=== PATIENT | female | born 1980 | race Caucasian/White ===

== ENCOUNTER 2019-01-20 13:44 | Emergency (ER) | payer MEDICAID, OTHER ==
[~2019-01-20] VITALS: Ht 165.1 cm; Wt 98.3 kg
[2019-01-20 13:48] VITALS: Ht 165.1 cm; Wt 98.3 kg
[2019-01-20] MEDS ORDERED: SOD CHLORIDE 0.9% 1,000 ML IV STA (14:14)
[2019-01-20] MEDS ORDERED: MTF1000T PO (15:17)
--- NOTE | 2019-01-20 15:19 | ERD ---
ER Documentation Chief Complaint Chief Complaint pt sent from PCP for FSBS 335, dx with DM II HPI This is a 30-year-old female who was diagnosed with diabetes a month ago she is taking metformin 500 mg twice daily. She says she is taking her medication however she is not following the correct diet at all. She says she felt a bit dizzy today and switch her primary care doctor and they gave her some insulin and sent her here for evaluation. No polys ROS All systems reviewed and are negative except as per history of present illness. Medications Home Meds Active Scripts Metformin* (Glucophage*) 1,000 Mg Tablet, 1000 MG PO BID, #60 TAB Prov:SHARON PALMEREdouard DO 01/20/19 Allergies Allergies: Coded Allergies: No Known Allergy (Unverified , 01/20/19) PMhx/Soc History of Surgery: Yes (C/Sx2) Anesthesia Reaction: No Hx Cardiac Disorders: Yes (HTN) Hx Miscellaneous Medical Probl: Yes (DM) Hx Alcohol Use: Yes (social) Hx Substance Use: No Hx Tobacco Use: No Smoking Status: Never smoker FmHx Family History: No coronary disease Physical Exam Vitals Vital Signs Date Temp Pulse Resp B/P (MAP) Pulse Ox O2 O2 Flow FiO2 Time Delivery Rate 01/20/19 98.0 75 16 138/75 96 Room Air 14:39 (96) 01/20/19 98.1 75 16 138/86 100 13:48 (103) Physical Exam Const: No acute distress Head: Atraumatic Eyes: Normal Conjunctiva ENT: Normal External Ears, Nose and Mouth. Neck: Full range of motion. No meningismus. Resp: Clear to auscultation bilaterally Cardio: Regular rate and rhythm, no murmurs Abd: Soft, non tender, non distended. Normal bowel sounds Skin: No petechiae or rashes Back: No midline or flank tenderness Ext: No cyanosis, or edema Neur: Awake and alert Psych: Normal Mood and Affect Result Diagram: 01/20/19 1432 Results 24 hrs Laboratory Tests Test 01/20/19 13:54 01/20/19 14:31 01/20/19 14:32 01/20/19 14:33 Bedside Glucose 295 mg/dL 289 mg/dL Urine Color YELLOW Urine Clarity CLEAR Urine pH 7.0 Urine Specific 1.038 Louise Urine Ketones TRACE mg/dL Urine Nitrite NEGATIVE mg/dL Urine Bilirubin NEGATIVE mg/dL Urine NEGATIVE mg/dL Urobilinogen Urine Leukocyte NEGATIVE He/ul Esterase Urine Microscopic 4 /HPF RBC Urine Microscopic 1 /HPF WBC Urine Hemoglobin 2+ mg/dL Urine Glucose 3+ mg/dL Urine Total NEGATIVE mg/dl Protein White Blood Count 7.4 10^3/ul Red Blood Count 5.11 10^6/ul Hemoglobin 14.5 g/dl Hematocrit 43.7 % Mean Corpuscular 85.5 fl Volume Mean Corpuscular 28.4 pg Hemoglobin Mean Corpuscular 33.2 g/dl Hemoglobin Concen t Red Cell 12.0 % Distribution Width Platelet Count 263 10^3/UL Mean Platelet 11.6 fl Volume Immature 0.300 % Granulocytes % Neutrophils % 64.5 % Lymphocytes % 26.8 % Monocytes % 5.7 % Eosinophils % 2.0 % Basophils % 0.7 % Nucleated Red 0.0 /100WBC Blood Cells % Immature 0.020 10^3/ul Granulocytes # Neutrophils # 4.8 10^3/ul Lymphocytes # 2.0 10^3/ul Monocytes # 0.4 10^3/ul Eosinophils # 0.2 10^3/ul Basophils # 0.1 10^3/ul Nucleated Red 0.0 10^3/ul Blood Cells # Test 01/20/19 14:57 POC Beta HCG, NEGATIVE Qualitative Current Medications Medications Dose Sig/Alannah Start Time Status Last (Trade) Ordered Route PRN Stop Time Admin Dose Reason Admin Sodium 1,000 ml @ Q1H STAT 01/20/19 DC 01/20/19 Chloride 1,000 mls/hr IV 14:14 14:36 01/20/19 15:13 Procedures/MDM Patient's blood sugar is adequate and she is not DKA Discussed home care and diet Departure Diagnosis: Primary Impression: Hyperglycemia Condition: Stable Patient Instructions: Hyperglycemia (High Blood Sugar) SHARON PALMER DO Jan 20, 2019 15:19
[2019-01-20 15:22] VITALS: BP 125/63; PULSE 69; RESP 18
== END 2019-01-20 15:26 | disposition home or self-care (01) ==
LOC: FTE 13:44 → E/R 15:26
DX: E11.65 Type 2 diabetes mellitus with hyperglycemia (principal); I10 Essential (primary) hypertension; Z79.84 Long term (current) use of oral hypoglycemic drugs
CPT/HCPCS: 80053; 81001; 81025; 82962; 83690; 85025; J7030; 36415; 96360